=== PATIENT | female | born 1945 | race Caucasian/White ===

== ENCOUNTER 2024-07-12 13:19 | Outpatient (AMB) | payer MEDICARE, SELFPAY ==
--- OUTSIDE RECORDS SUMMARY | 2024-07-12 13:22 | XMS_ITS | Clinical Summary ---
Author Organization [facility] it Address [address] [place] [address] Care Team Providers Care Logistics Team Lead Name Role Phone Lea Goodman MD Primary Care Provider [phone] Medical History Medical History Date Comments Hypertension DX:Hypertension Tremor DX:Tremor Hyperlipidemia DX:Hyperlipidemi a Social History Tobacco Use Types Packs/Day Years Used Date Smoking Tobacco: Former Comments Unknown Sex and Gender Information Value Date Recorded Sex Assigned at Not on file Legal Sex Female 6:29 AM EST Gender Identity Not on file Sexual Orientation Not on file Obstetrics History Plan of Treatment Health Maintenance Due Date Last Done Comments DTaP,Tdap,and Td Vaccines (1 - Tdap) 1966 Pneumococcal Vaccine: 50+ Ye ars (1 of 1 - PCV) 1997 Zoster Vaccines (1 of 2) 1997 RSV Immunization Patients 60 + Years Old (1 - 1-dose 75+ series) 2022 Depression Screening 04/28/2022 Falls Risk Assessment 04/28/2022 Hepatitis C Screening 04/28/2022 Osteoporosis Screening (Bone Density Screening) 04/28/2022 Social Influencers of Health Screening 04/28/2022 COVID-19 Vaccine (1 - 2023-2 5 season) 2024 Influenza Vaccine (#1) 2024 HIB Vaccines Aged Out No longer eligi ble based on patient's age to complete this topic HPV Vaccines Aged Out No longer eligi ble based on patient's age to complete this topic Hepatitis A Vaccines Aged Out No long er eligible based on patient's age to complete this topic Hepatitis B Vaccines Aged Out No long er eligible based on patient's age to complete this topic IPV Vaccines Aged Out No longer eligi ble based on patient's age to complete this topic MMR Vaccines Aged Out No longer eligi ble based on patient's age to complete this topic Meningococcal ACWY Vaccine Aged Out N o longer eligible based on patient's age to complete this topic Meningococcal B Vacine Aged Out No lo nger eligible based on patient's age to complete this topic RSV Immunization Patients Un karina 20 months Aged Out No longer eligible b ased on patient's age to complete this topic Varicella Vaccines Aged Out No longer eligible based on patient's age to complete this topic Care Teams Logistics Team Lead Relationship Specialty Start Date End Date Lea Goodman MD [address] [place] [phone] PCP - General Internal Medicine 03/10/22
--- NOTE | 2024-07-12 13:24 | MHC.PC.OV ---
Vital Signs 07/12/24 13:46 Weight 152 lb 6 oz BP 110/64 Blood Pressure Location Rt brachial Position Sitting Respiration 16 Pulse 61 Pulse Source Pulse Oximeter Temp 98.1 F Temp Source Oral Pulse Oximetry (%) 94 Oxygen Delivery Method Room Air Intake Visit Reasons: Est.Care / Med refill Elevator Technician Required: No Is last menstrual period known: No Post menopausal: Yes Patient : No Allergies No Known Allergies Allergy (Verified 07/12/24 13:26) Medication List - Last Reconciled 07/12/24 by Mendez Grady RN amlodipine mg PO DAILY atorvastatin mg PO DAILY cholecalciferol (vitamin D3) 50 mcg PO DAILY levothyroxine mcg PO DAILY lisinopril-hydrochlorothiazide 20-12.5 mg tabs PO DAILY paroxetine HCl mg PO propranolol mg PO DAILY Fall risk assessment: No Falls in past year Dental Screening Dental Screen Date: 07/12/24 Did you have a dental visit in the last 12 months?: Yes Did you have a dental problem in the last 6 months where you did not have access to dental care?: No Was dental information given to patient?: No HPI HPI Comments History of Present Illness Details 79 year old female with a past medical history of hypertension, hyperlipidemia, SVT, anxiety, Graves disease s/p radioactive iodine, presenting to [facility]. CV: Follows with [facility]. Has seen vascular for right carotid disease, Dr Garcia-has follow up scan in July. Endocrine: Was seeing [facility]inology. Graves s/p i131. On levothyroxine. Mammogram: 09/2023 Colonoscopy: 2019 ROS CONSTITUTIONAL: Denies weight loss, fever and chills. HEENT: Denies changes in vision and hearing. RESPIRATORY: Denies SOB and cough. CV: Denies palpitations and CP GI: Denies abdominal pain, nausea, vomiting and diarrhea. : Denies dysuria and urinary frequency. MSK: Denies new myalgia and joint pain. SKIN: Denies rash and pruritus. NEUROLOGICAL: Denies headache PSYCHIATRIC: Denies recent changes in mood. PHYSICAL EXAM: GENERAL: Alert and oriented x 3. NAD EYES: EOMI. Anicteric. HENT: Moist mucous membranes. No scleral icterus. No cervical lymphadenopathy. LUNGS: Clear to auscultation bilaterally. CARDIOVASCULAR: Regular rate and rhythm. No murmur. No JVD. ABDOMEN: Soft, non-tender +bs EXTREMITIES: No edema. Non-tender. SKIN: No rashes or lesions. Warm. NEUROLOGIC: No focal neurological deficits. CN II-XII grossly intact PSYCHIATRIC: Cooperative. Appropriate mood and affect [facility] Medical History Hypertension Social History Housing: House Housing Other:: lives alone Patient Tobacco Use Status: Former Tobacco user Tobacco use type: Cigarette e-Cigarette/Vaping Use: Never Used service: No Current occupational status: retired Current occupational exposures/hazards: No Cognitive needs: No Hearing needs: No Vision needs: Yes Female Reproductive History Menstrual control method: none Questionnaire PHQ-9 Over the last 2 weeks, how often have you been bothered by any of the following problems? 1. Little interest or pleasure in doing things: not at all 2. Feeling down, depressed, or hopeless: not at all 3. Trouble falling or staying asleep, or sleeping too much: not at all 4. Feeling tired or having little energy: several days 5. Poor appetite or overeating: not at all 6. Feeling bad about yourself - or that you are a failure or have let yourself or your family down: not at all 7. Trouble concentrating on things, such as reading the newspaper or watching television: not at all 8. Moving or speaking so slowly that other people could have noticed. Or the opposite - being so fidgety or restless that you have been moving around a lot more than usual: not at all 9. Thoughts that you would be better off or of hurting yourself in some way: not at all Total score: 1 Depression Screening Interpretation: Negative Depression Screening Done: Yes 17720 - PHQ-9 Billing: Yes Source: Developed by Drs. Real Page, Kim Echevarria, Rosales Lorenzo and colleagues, with an educational yony from [employer]. Thrive Questionnaire I am a: Patient What is your living situation today?: I have a steady place to live Within the past 12 months, did the food you bought not last and you didn't have the money to get more?: I choose not to answer this question Within the past 12 months, did you worry whether your food would run out before you got money to buy more?: Never true Do you have trouble paying for medicines?: No Do you have trouble getting transportation to medical appointments?: No Do you have trouble paying your heating and electricity bill?: No Do you have trouble taking care of your child, family member or friend?: No Do you have trouble with day-to-day activities such as bathing, preparing meals, shopping, managing finances, etc.?: No Are you currently unemployed and looking for a job?: No Are you interested in more education?: No Please select the resources that you would like help with: None Currently or been in a relationship where the following occur: I choose not to answer THRIVE Score: 0 AUDIT C Alcohol Use Questionnaire (AUDIT-C) 1. How often do you have a drink containing alcohol?: Never Total Score: 0 Score Reviewed/Action Taken: Yes DEBBI-7 AMB Questionnaire DEBBI-7 Date DEBBI - 7 assessed: 07/12/24 Feeling nervous, anxious, or on edge: 1 = Several days Not being able to stop or control worryin = Several days Worrying too much about different things: 1 = Several days Trouble relaxin = Not at all Being so restless that it is hard to sit still: 0 = Not at all Becoming easily annoyed or irritable: 0 = Not at all Feeling afraid as if something awful might happen: 0 = Not at all Total DEBBI-7 score (0-4 normal; 5-9 mild; 10-14 moderate; 15-21 severe): 3 Source: Developed by Drs. Real Page, Kim Echevarria, Rosales Lorenzo and colleagues, with an educational yony from [employer]. DEBBI-7 Assessment Billing DEBBI-7 Assessment Tool: DEBBI-7 Assessment 70096 Physical exam (Primary Care) Vital Signs: Last Vital Signs Temp 98.1 F 07/12/24 13:46 Pulse 61 07/12/24 13:46 Resp 16 07/12/24 13:46 BP 110/64 07/12/24 13:46 Pulse Ox 94 07/12/24 13:46 Oxygen Delivery Method Room Air 07/12/24 13:46 Tobacco/Smoking Status: Tobacco use Status Patient Tobacco Use Status Former Tobacco user 07/12/24 13:36 Tobacco use type Cigarette 07/12/24 13:36 e-Cigarette/Vaping Use Never Used 07/12/24 13:40 PHQ-9: PHQ-9 Score PHQ-9: Total score 1 07/12/24 14:14 Depression Screening Interpretation: Negative Currently or been in a relationship where the following occur: I choose not to answer Coding Level of Care Code New Pt Level 4 (34968) Complex EM visit Add On G2211 Diagnoses Encounter to establish care Z76.89 Primary hypertension I10 Hypertension type: primary hypertension Mixed hyperlipidemia E78.2 Hyperlipidemia type: mixed hyperlipidemia Additional Codes DEBBI-7 Assessment Billing - DEBBI-7 Assessment Tool: DEBBI-7 Assessment 27695 ([id number]) PHQ-9 - 22676 - PHQ-9 Billing: Yes ([id number]) Assessment & Plan Assessment & Plan (1) Encounter to establish care: Code(s): Z76.89 - Persons encountering health services in other specified circumstances Category: Medical Plan: 79 year old female presenting to establish care. Past medical, surgical, social and family history reviewed. Chart updated. Labs ordered (2) Hypertension: Code(s): I10 - Essential (primary) hypertension Category: Medical Qualifiers: Hypertension type: primary hypertension Qualified Code(s): I10 - Essential (primary) hypertension Plan: Decrease salt. monitor at home (3) Hyperlipidemia: Code(s): E78.5 - Hyperlipidemia, unspecified Category: Medical Qualifiers: Hyperlipidemia type: mixed hyperlipidemia Qualified Code(s): E78.2 - Mixed hyperlipidemia Plan: monitor labs Orders: Orders TSH reflex Free T4 07/12/24 E78.5 - Hyperlipidemia, unspecified, F32.A - Depression, unspecified, I10 - Essential (primary) hypertension, Z76.89 - Persons encountering health services in other specified circumstances Comprehensive Met. Panel 07/12/24 E78.5 - Hyperlipidemia, unspecified, F32.A - Depression, unspecified, I10 - Essential (primary) hypertension, Z76.89 - Persons encountering health services in other specified circumstances Hemoglobin A1c 07/12/24 E78.5 - Hyperlipidemia, unspecified, F32.A - Depression, unspecified, I10 - Essential (primary) hypertension, Z76.89 - Persons encountering health services in other specified circumstances Lipid Panel 07/12/24 E78.5 - Hyperlipidemia, unspecified, F32.A - Depression, unspecified, I10 - Essential (primary) hypertension, Z76.89 - Persons encountering health services in other specified circumstances Complete Blood Count Auto Diff 07/12/24 E78.5 - Hyperlipidemia, unspecified, F32.A - Depression, unspecified, I10 - Essential (primary) hypertension, Z76.89 - Persons encountering health services in other specified circumstances Vitamin B12 and Folate 07/12/24 R53.83 - Other fatigue
[2024-07-12 13:46] VITALS: BP 110/64; PULSE 61; RESP 16; TEMP 36.7; O2SAT 94
== END 2024-07-12 13:58 | disposition home or self-care (01) ==
PROVIDERS: PCP Internal Medicine; Visit Provider Internal Medicine
DX: Z76.89 Persons encountering health services in other specified circumstances (principal); I10 Essential (primary) hypertension; E78.2 Mixed hyperlipidemia

== ENCOUNTER 2024-07-12 14:05 | Outpatient (REF) | payer MEDICARE, SELFPAY ==
--- OUTSIDE RECORDS SUMMARY | 2024-07-12 14:09 | XMS_ITS | Clinical Summary ---
Author Organization [facility] Address [address] [id number] Care Team Providers Care Awning Craftsperson Name Role Phone Lea Goodman MD Primary Care Provider [phone] Medications Medication Sig Dispensed Refills Start Date End Date Status pravastatin (PRAVACHOL) tablet 40 mg Take 40 mg by mouth daily. 0 2020 Active propranolol (INDERAL LA) 60 MG 24 hr capsule Take 60 mg by mouth daily. 0 04/27/2020 Active PARoxetine (PAXIL) 10 MG tablet Take 10 mg by mouth daily. 0 2020 Active lisinopril (PRINIVIL,ZESTRIL) tablet 20 mg Take 40 mg by mouth daily. 0 Active Active Problems No known active problems Social History Tobacco Use Types Packs/Day Years Used Date Smoking Tobacco: Former Sex and Gender Information Value Date Recorded Sex Assigned at Female 03/10/2022 4:57 PM EDT Gender Identity Not on file Sexual Orientation Not on file Job Start Date Occupation Industry Not on file Not on file Not on file Last Filed Vital Signs Vital Sign Reading Time Taken Comments Blood Pressure 118/43 03/10/2022 6:15 PM EDT Pulse 73 03/10/2022 6:15 PM EDT Temperature 36.8 ??C (98.2 ??F) 03/10/2022 6:15 PM ED T Respiratory Rate 18 03/10/2022 6:15 PM EDT Oxygen Saturation 99% 03/10/2022 6:15 PM EDT Inhaled Oxygen Concentration - - Weight - - Height - - Body Mass Index - - Plan of Treatment Health Maintenance Due Date Last Done Comments Hepatitis C Screening 1947 COVID-19 Vaccine (#1) 1947 Depression Screening 1959 Preventative Health Evaluation 1965 DTap / Tdap / Td (1 - Tdap) 1966 Shingrix-Zoster Vaccine (1 o f 2) 1997 Fall Risk Assessment 2012 Osteoporosis Screening (DEXA Scan) 2012 RSV Adult > 60+ Yrs or (1 - 1-dose 75+ series) 2022 Influenza Vaccine (#1) 2024 0, 02/12/2019 Pneumococcal Vaccine Completed 04/25/2016, 03/24/2012 Hepatitis B Vaccines Aged Out No long er eligible based on patient's age to complete this topic RSV Ped < 20 months Aged Out No longe r eligible based on patient's age to complete this topic Care Teams Awning Craftsperson Relationship Specialty Start Date End Date Lea Goodman MD [address] [place] [phone] PCP - General Internal Medicine 03/10/22
--- OUTSIDE RECORDS SUMMARY | 2024-07-12 14:09 | XMS_ITS | Clinical Summary ---
Author Organization [facility] it Address [address] [place] [address] Care Team Providers Care Sorting Machine Attendant Name Role Phone Lea Goodman MD Primary Care Provider [phone] Medical History Medical History Date Comments Hypertension [...] age to complete this topic Care Teams Sorting Machine Attendant Relationship Specialty Start Date End Date Lea Goodman MD [address] [place] [phone] PCP - General Internal Medicine 03/10/22
[2024-07-12 16:27] LABS: MANUAL DIFF FLAG NO
[2024-07-12 16:44] LABS: Basophils Absolute Auto 0.1 X10*3/uL (0.0-0.2); Basophils Percent Auto 0.6 % (0-2); Eosinophils Absolute Auto 0.1 X10*3/uL (0.0-0.4); Eosinophils Percent Auto 1.5 % (0-4); Hematocrit 40.6 % (37.0-47.0); Hemoglobin 13.5 g/dl (12.0-16.0); Imm Gran Abs Auto 0.03 X10*3/uL (0.00-0.03); Imm Gran Pct Auto 0.3 % (0.0-0.4); Lymphocytes Absolute Auto 2.6 X10*3/uL (1.2-4.9); Lymphocytes Percent Auto 29.6 % (20-40); Mean Corpuscular HGB Conc 33.3 g/dl (31.0-35.0); Mean Corpuscular Hemoglobin 30.1 pg (27.0-33.0); Mean Corpuscular Volume 90.6 fL (80.0-98.0); Mean Platelet Volume 9.7 fL (9.4-12.3); Monocytes Absolute Auto 0.5 X10*3/uL (0.1-1.2); Monocytes Percent Auto 5.6 % (2-11); Neutrophils Absolute Auto 5.5 x10*3/uL (2.0-8.3); Neutrophils Percent Auto 62.4 % (45-73); Platelet Count 381 X10*3/uL (160-400); Red Blood Count 4.48 X10*6/uL (4.20-5.50); Red Cell Distribution Width 13.2 % (11.0-16.0); White Blood Count 8.9 X10*3/uL (4.8-10.8)
[2024-07-12 17:30] LABS: Estimated Average Glucose 108 mg/dL; Hemoglobin A1C 125.0545 umol/L; Hemoglobin A1c % 5.4 % (<6.0); Total Hemoglobin (HGBA1C) 3497.7143 umol/L
[2024-07-12 17:40] LABS: Alanine Aminotransferase 24 U/L (0-31); Albumin Level 4.1 g/dL (3.5-5.0); Alkaline Phosphatase 58 U/L (39-117); Anion Gap 13 (12-20); Aspartate Amino Transferase 25 U/L (5-31); Bilirubin Total 0.3 mg/dL (0.0-1.0); Blood Urea Nitrogen 28 mg/dL (9-16); Calcium 9.3 mg/dL (8.4-10.2); Carbon Dioxide 26 mmol/L (22-29); Chloride 104 mmol/L (96-108); Cholesterol 143 mg/dL (<200); Estimated Glomerular Filt Rate > 60; Glucose Random 101 mg/dL (60-115); HDL Cholesterol 48 mg/dL (>40); LDL Cholesterol Calculated 72 mg/dL (<100); Potassium 3.6 mmol/L (3.3-5.1); Sodium 139 mmol/L (135-145); Total Protein 7.6 g/dL (6.5-8.0); Triglycerides 119 mg/dL (<150)
[2024-07-12 17:58] LABS: TSH reflex Free T4 0.67 uIU/mL (0.32-4.0)
[2024-07-12 18:09] LABS: Folate 13.5 ng/mL (> or = 4.0); Vitamin B12 409 pg/mL (200-900)
== END 2024-07-12 14:06 | disposition home or self-care (01) ==
LOC: HO.WFDLDS 14:05
PROVIDERS: Visit Provider Internal Medicine
DX: Z76.89 Persons encountering health services in other specified circumstances (principal); I10 Essential (primary) hypertension; E78.2 Mixed hyperlipidemia; F32.A Depression, unspecified; R53.83 Other fatigue; Z13.1 Encounter for screening for diabetes mellitus
CPT/HCPCS: 36415; 80053; 80061; 82607; 82746; 83036; 84443; 85025; 96127; 99202

== ENCOUNTER 2025-02-28 14:02 | Outpatient (REF) | payer MEDICARE, SELFPAY ==
[2025-02-28 18:10] LABS: MANUAL DIFF FLAG NO
[2025-02-28 18:12] LABS: Hematocrit 38.9 % (37.0-47.0); Hemoglobin 13.0 g/dl (12.0-16.0); Imm Gran Abs Auto 0.04 X10*3/uL (0.00-0.03); Imm Gran Pct Auto 0.5 % (0.0-0.4); Lymphocytes Absolute Auto 2.9 X10*3/uL (1.2-4.9); Mean Corpuscular HGB Conc 33.4 g/dl (31.0-35.0); Mean Corpuscular Hemoglobin 30.0 pg (27.0-33.0); Mean Corpuscular Volume 89.8 fL (80.0-98.0); NRBC Abs Auto 0.000 X10*3/uL (0.0-0.012); NRBC Pct Auto 0.0 /100WBC (0.0-0.2); Platelet Count 354 X10*3/uL (160-400); Red Blood Count 4.33 X10*6/uL (4.20-5.50); White Blood Count 8.3 X10*3/uL (4.8-10.8)
[2025-02-28 18:32] LABS: Alanine Aminotransferase 21 U/L (0-31); Albumin Level 4.3 g/dL (3.5-5.0); Anion Gap 10 (12-20); Aspartate Amino Transferase 26 U/L (5-31); Blood Urea Nitrogen 24 mg/dL (9-16); Calcium 9.2 mg/dL (8.4-10.2); Carbon Dioxide 28 mmol/L (22-29); Chloride 102 mmol/L (96-108); Cholesterol 146 mg/dL (<200); Estimated Glomerular Filt Rate > 60; HDL Cholesterol 42 mg/dL (>40); Potassium 3.7 mmol/L (3.3-5.1); Sodium 136 mmol/L (135-145); Total Protein 7.0 g/dL (6.5-8.0); Triglycerides 122 mg/dL (<150)
[2025-02-28 18:38] LABS: Alkaline Phosphatase 48 U/L (39-117)
[2025-02-28 18:59] LABS: Folate 12.7 ng/mL (> or = 4.0); Vitamin B12 436 pg/mL (200-900)
[2025-03-01 07:11] LABS: Hemoglobin A1C 121.3681 umol/L
== END 2025-02-28 14:03 | disposition home or self-care (01) ==
LOC: HO.WFDLDS 14:02
PROVIDERS: PCP Internal Medicine; Visit Provider Internal Medicine
DX: Z00.00 Encounter for general adult medical examination without abnormal findings (principal); I10 Essential (primary) hypertension; E78.2 Mixed hyperlipidemia; E03.9 Hypothyroidism, unspecified; F32.A Depression, unspecified; R53.83 Other fatigue; R73.09 Other abnormal glucose
CPT/HCPCS: 36415; 80053; 80061; 82607; 82746; 83036; 84443; 85025; 99212

== ENCOUNTER 2025-02-28 14:02 | Outpatient (AMB) | payer MEDICARE, SELFPAY ==
--- NOTE | 2025-02-28 14:07 | AM.OFFVISMDC ---
Intake Vital Signs 02/28/25 14:20 Height 5 ft 1.5 in Weight 154 lb BMI 28.6 BP 129/65 Blood Pressure Location Rt brachial Position Sitting Respiration 12 Pulse 60 Pulse Source Pulse Oximeter Temp 98.5 F Temp Source Oral Pulse Oximetry (%) 95 Oxygen Delivery Method Room Air Intake Visit Reasons: Annual Wellness Intake Note: Medical annual wellness. Needs refill on Amlodipine, paroxetine, lisinopril Lap Checker Required: No Allergies No Known Allergies Allergy (Verified 02/28/25 14:19) HPI HPI Comments History of Present Illness Details 79 year old female with a past medical history of hypertension, hyperlipidemia, SVT, anxiety, Graves disease s/p radioactive iodine, presenting for MWV CV: Follows with [facility] cardiology once annually-next appt in August. Has seen vascular for carotid disease 1-49%, Dr Garcia. On atorvastatin. Sometimes lightheaded upon standing Endocrine: Was seeing [facility] endocrinology. Graves s/p i131. On levothyroxine. Labs WNL in June BH: stable on paxil, proranolol-tremor. Mammogram: 09/2023 Colonoscopy: 2019 Tdap 09/2023 RSV 2022 HRA reviewed Independent ADLs ROS CONSTITUTIONAL: Denies weight loss, fever and chills. HEENT: Denies changes in vision and hearing. RESPIRATORY: Denies SOB and cough. CV: Denies palpitations and CP GI: Denies abdominal pain, nausea, vomiting and diarrhea. : Denies dysuria and urinary frequency. MSK: Denies new myalgia and joint pain. SKIN: Denies rash and pruritus. NEUROLOGICAL: Denies headache PSYCHIATRIC: Denies recent changes in mood. PHYSICAL EXAM: GENERAL: Alert and oriented x 3. NAD EYES: EOMI. Anicteric. HENT: Moist mucous membranes. No scleral icterus. No cervical lymphadenopathy. LUNGS: Clear to auscultation bilaterally. CARDIOVASCULAR: Regular rate and rhythm. No murmur. No JVD. ABDOMEN: Soft, non-tender +bs EXTREMITIES: No edema. Non-tender. SKIN: No rashes or lesions. Warm. NEUROLOGIC: No focal neurological deficits. CN II-XII grossly intact PSYCHIATRIC: Cooperative. Appropriate mood and affect [facility] Medical History Hypertension Social History (Updated 02/28/25 @ 14:26 by Belinda Leung CMA) Housing: House Housing Other:: lives alone Alcohol intake: current Patient Tobacco Use Status: Former Tobacco user Tobacco use type: Cigarette e-Cigarette/Vaping Use: Never Used Use of substances other than those prescribed or required for medical reasons: No service: No Current occupational status: retired Current occupational exposures/hazards: No Cognitive needs: No Hearing needs: No Vision needs: Yes Questionnaire Medicare Wellness Checkup [age] What gender do you identify with?: female During the past 4 weeks, how much have you been bothered by emotional problems such as feeling anxious, depressed, irritable, sad or downhearted, and blue?: slightly (twice a week) During the past 4 weeks, has your physical & emotional health limited your social activities with family, friends, neighbors, or groups?: not at all During the past 4 weeks, how much bodily pain have you generally had?: mild pain During the past 4 weeks, what was the hardest physical activity you could do for at least 2 minutes?: moderate Can you get to places out of walking distance without help? (For eg., can you travel alone on buses, taxis or drive your car?): Yes Can you go shopping for groceries or clothes without someone's help?: Yes Can you prepare your own meals?: Yes Can you do your housework without help?: Yes Because of any health problems, do you need the help of another person with your personal care needs such as eating, bathing, dressing or getting around the house?: No Can you handle your own money without help?: Yes During the past 4 weeks, how would you rate your health in general?: fair During the past 4 weeks how have things been going for you?: pretty well Are you having difficulties driving your car?: no Do you always fasten your seat belt when you are in a car?: yes, usually During past 4 weeks, have you been bothered by the following: never: Sexual problems?, Trouble eating well?, Teeth or denture problems? and Problems using the telephone?, seldom: Tiredness or fatigue? and sometimes: Falling or dizzy when standing up Have you fallen 2 or more times in the past year?: Yes Are you afraid of falling?: Yes Are you a smoker?: no During the past 4 weeks, how many drinks of wine, beer, or other alcoholic beverages did you have?: 1 drink or less per week Do you exercise for about 20 minutes 3 or more times a week?: no, I usually do not exercise this much Have you been given information to help with the following?: yes: Hazards in your house that might hurt you? and yes: Keeping track of your medications? How often do you have trouble taking medicines the way you have been told to take them?: I always take medicine as prescribed How confident are you that you can control & manage most of your health problems?: very confident What is your race?: White Mini Mental State Exam (MMSE) Orientation What is the (year) (season) (date) (day) (month)?: year (2024), season (fall), date (02/28), day () and month (february) Where are we (state) (county) (town or city) (hospital) (floor)?[place] state [place]), county ([place]), town or city ([place]), hospital/clinic ([facility]) and floor (first) Registration Name of 3 unrelated objects clearly and slowly, then ask patient to repeat all 3 of them. (1st repeat determines score. Make sure they can repeat all three): object 1 (ball), object 2 (flag) and object 3 (tree) Attention & Calculation (CHOOSE ONE) Spell WORLD backwards (DLROW): 5 letters Recall Ask patient to repeat the 3 items from question #3.: object 1 (ball) and object 2 (flag) Language Show patient a wristwatch & ask what it is. Repeat for pencil.: watch and pencil Ask the patient to repeat the phrase 'No ifs, ands, or buts' after you.: correct Ask the patient to 'take a piece of paper with their right hand' 'fold paper in half' 'place paper on floor': take paper in right hand and fold paper in half Print the sentence 'CLOSE YOUR EYES' on a piece. If patient actually closes eyes then score.: followed written direction Give patient a blank piece of paper & ask to write a sentence. Score if it contains a noun & verb.: sentence contains subject and verb Ask patient to copy figure of intersecting pentagons exactly. Score if all 10 angles & 2 intersects are included.: all 10 angles present & 2 are intersected Score Score: 28 Activity of Daily Living Bathing - sponge bath, tub bath or shower: receives no assistance (gets in/out by self, if usual bathing means Dressing - getting clothes from closets & drawers, including inner/outer garments & fasteners.: gets clothes & gets completely dressed without help Toileting - going to the 'toilet room' for urine/bowel elimination & cleaning self/arranging clothes: goes to toilet room, cleans self, arranges clothes without help Transfer: moves in & out of bed and chair without help (may use support object) Continence: controls urination/bowel movements completely by self Feeding: feeds self without help Total Score: 0 Information obtained from: patient Using telephone: independent Traveling: independent Shopping: independent Preparing meals: independent Housework: independent Taking medicine: independent Managing money: independent Physical Exam Vital Signs: Last Vital Signs Temp 98.5 F 02/28/25 14:20 Pulse 60 02/28/25 14:20 Resp 12 02/28/25 14:20 BP 129/65 02/28/25 14:20 Pulse Ox 95 02/28/25 14:20 Oxygen Delivery Method Room Air 02/28/25 14:20 BMI result Body Mass Index 28.6 Assessment & Plan Assessment & Plan (1) Medicare annual wellness visit, subsequent: Code(s): Z00.00 - Encounter for general adult medical examination without abnormal findings (2) Hypertension: Code(s): I10 - Essential (primary) hypertension Qualifiers: Hypertension type: primary hypertension Qualified Code(s): I10 - Essential (primary) hypertension (3) Hyperlipidemia: Code(s): E78.5 - Hyperlipidemia, unspecified Qualifiers: Hyperlipidemia type: mixed hyperlipidemia Qualified Code(s): E78.2 - Mixed hyperlipidemia (4) Hypothyroid: Code(s): E03.9 - Hypothyroidism, unspecified Qualifiers: Hypothyroidism type: unspecified Qualified Code(s): E03.9 - Hypothyroidism, unspecified (5) Depression: Code(s): F32.A - Depression, unspecified Qualifiers: Depression Type: unspecified Qualified Code(s): F32.A - Depression, unspecified Plan 79 year old female presenting for [facility] HRA, care team, MMSE Depression is stable Hypothyroid-on levothyroxine Reports some orthostasis-dc lisinopril hctz. continue lisinopril, amlodipine She will get high dose flu at pharmacy Orders: Orders Complete Blood Count Auto Diff Today E03.9 - Hypothyroidism, unspecified, E78.2 - Mixed hyperlipidemia, F32.A - Depression, unspecified, I10 - Essential (primary) hypertension, R53.83 - Other fatigue Comprehensive Met. Panel Today E03.9 - Hypothyroidism, unspecified, E78.2 - Mixed hyperlipidemia, F32.A - Depression, unspecified, I10 - Essential (primary) hypertension, R53.83 - Other fatigue TSH reflex Free T4 Today E03.9 - Hypothyroidism, unspecified, E78.2 - Mixed hyperlipidemia, F32.A - Depression, unspecified, I10 - Essential (primary) hypertension, R53.83 - Other fatigue Vitamin B12 and Folate Today E03.9 - Hypothyroidism, unspecified, E78.2 - Mixed hyperlipidemia, F32.A - Depression, unspecified, I10 - Essential (primary) hypertension, R53.83 - Other fatigue Hemoglobin A1c Today R73.09 - Other abnormal glucose Lipid Panel Today E03.9 - Hypothyroidism, unspecified, E78.2 - Mixed hyperlipidemia, F32.A - Depression, unspecified, I10 - Essential (primary) hypertension, R53.83 - Other fatigue Medications: New lisinopril 20 mg PO DAILY 90 tabs 3RF Discontinued lisinopril-hydrochlorothiazide 20-12.5 mg Discontinued Reason: Doctor's Order 1 tab PO DAILY 90 tabs 3RF Coding Level of Care Code Est Pt Level 4 (80447) Diagnoses Medicare annual wellness visit, subsequent Z00.00 Primary hypertension I10 Hypertension type: primary hypertension Mixed hyperlipidemia E78.2 Hyperlipidemia type: mixed hyperlipidemia Hypothyroidism, unspecified type E03.9 Hypothyroidism type: unspecified Depression, unspecified depression type F32.A Depression Type: unspecified
[2025-02-28 14:20] VITALS: BP 129/65; PULSE 60; RESP 12; TEMP 36.9; O2SAT 95; BMI 28.6
--- OUTSIDE RECORDS SUMMARY | 2025-02-28 16:36 | XMS_ITS | Clinical Summary ---
Author Organization [facility] Address [address] [place] [address] Care Team Providers Care Double End Tenoner Operator Name Role Phone Lea Goodman MD Primary Care Provider [phone] Medications Medication Sig Dispensed Refills Start Date [...] 73 03/10/2022 6:15 PM EDT Temperature 36.8 C (98.2 F) 03/10/2022 6:15 PM EDT Respiratory Rate 18 03/10/2022 6:15 PM EDT [...] 1-dose 75+ series) 2022 Influenza Vaccine (#1) 2025 0, 02/12/2019 Pneumococcal Vaccine Completed 04/25/2016, 03/24/2012 Hepatitis B Vaccines Aged Out No long er eligible based on patient's age to complete this topic RSV Ped < 20 months Aged Out No longe r eligible based on patient's age to complete this topic Care Teams Double End Tenoner Operator Relationship Specialty Start Date End Date Lea Goodman MD [address] [place] [phone] PCP - General Internal Medicine 03/10/22
--- OUTSIDE RECORDS SUMMARY | 2025-02-28 16:36 | XMS_ITS | Clinical Summary ---
Author Organization [facility] it[facility] Address [address] [place] [address] Care Team Providers Care Accounts Receivable Supervisor Name Role Phone Lea Goodman MD Primary Care Provider Unavailab le Medical History Medical History Date Comments Hypertension [...] Vaccines (1 of 2) 1997 RSV Immunization Adult Patie nts (1 - 1-dose 75+ series) 2022 Falls Risk Assessment 04/28/2022 Hepatitis C Screening 04/28/2022 Osteoporosis Screening (Bone Density Screening) 04/28/2022 Social Influencers of Health Screening 04/28/2022 Depression Screening 05/26/2024 COVID-19 Vaccine ( - 2023-2 5 season) 2025 Influenza Vaccine (#1) 2025 HIB Vaccines Aged Out No longer eligi [...] age to complete this topic Meningococcal B Vaccine Aged Out No l onger eligible based on patient's age to complete this topic RSV Immunization Patients Un karina 20 months Aged Out No longer eligible b ased on patient's age to complete this topic Varicella Vaccines Aged Out No longer eligible based on patient's age to complete this topic Care Teams Accounts Receivable Supervisor Relationship Specialty Start Date End Date Lea Goodman MD PCP - General Internal Medicine 03/10/22
== END 2025-02-28 14:47 | disposition home or self-care (01) ==
LOC: HO.HMCFM 14:03
PROVIDERS: PCP Internal Medicine; Visit Provider Internal Medicine
DX: Z00.00 Encounter for general adult medical examination without abnormal findings (principal); I10 Essential (primary) hypertension; E78.2 Mixed hyperlipidemia; E03.9 Hypothyroidism, unspecified; F32.A Depression, unspecified